=== PATIENT | male | born 2000 | race Caucasian/White ===

== ENCOUNTER 2019-06-20 15:43 | Emergency (ER) | payer MEDICAID ==
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
--- NOTE | 2019-06-21 08:55 | CR ---
INDICATION: Fall/hand injury. RIGHT HAND: Three views of the right hand were obtained, 06/20/19 - no comparisons. A fracture, dislocation, or other significant bone or joint abnormality was not identified. There does appear to be some minor soft tissue swelling overlying the dorsum of the hand at the level of the metacarpophalangeal joints. If an occult fracture site is suspected clinically, re-examination in 10-14 days may be helpful. MTDD
== END 2019-06-20 17:25 | disposition home or self-care (01) ==
LOC: FB.ED 15:43
DX: S60.511A Abrasion of right hand, initial encounter (principal); F17.210 Nicotine dependence, cigarettes, uncomplicated; W19.XXXA Unspecified fall, initial encounter; Y93.51 Activity, roller skating (inline) and skateboarding
CPT/HCPCS: 73130-RT; 99283-25